=== PATIENT | female | born 1955 | race Asian ===

== ENCOUNTER 2019-08-21 05:54 | Day surgery (SDC) | payer OTHER ==
[~2019-08-21] VITALS: Ht 154.9 cm; Wt 42.3 kg
[~2019-08-21 05:54] MED LIST: BECL8.7A5 IH; METF-444 PO; SODIUM CHLORIDE 0.9% 1,000 ML IV ONE
[2019-08-21] MEDS ORDERED: LIDOCAINE 2% 30 ML JELLY TP ONE (05:55)
[2019-08-21] MEDS ORDERED: ALBUTEROL SULFATE 2.5 MG/0.5 ML NEB SOLUTION NEB ONE (05:55)
[2019-08-21] MEDS ORDERED: LIDOCAINE 4% 50 ML SOLUTION TP ONE (05:55)
[2019-08-21] MEDS ORDERED: BENZOCAINE 20% 50 MCG/SPRAY 57 GM TP ONE (05:55)
[2019-08-21] MEDS ORDERED: SODIUM CHLORIDE 0.9% 1,000 ML IV ONE (07:00)
[2019-08-21 07:21] LABS: GLUCOMETER DEV NAME(LOC) SDS.; GLUCOSE,POINT OF CARE 76 MG/DL (70-110)
[2019-08-21] MEDS ORDERED: FentaNYL CITRATE-PF 100 MCG/2 ML VIAL ONE (08:02)
[2019-08-21] MEDS ORDERED: MIDAZOLAM HCL 2 MG/2 ML VIAL ONE (08:02)
[2019-08-21] MEDS ORDERED: GLIP5TAB11 PO (08:17)
[2019-08-21] MEDS ORDERED: FLUT16H IH (08:17)
[2019-08-21] MEDS ORDERED: MONT10TA24 PO (08:17)
[2019-08-21] MEDS ORDERED: BECL10.62 IH (08:17)
[2019-08-21] MEDS ORDERED: GABA-531 PO (08:17)
[2019-08-21] MEDS ORDERED: CHOL200059 PO (08:17)
[2019-08-21] MEDS ORDERED: SIMV10TA97 PO (08:17)
[2019-08-21] MEDS ORDERED: METF-445 PO (08:17)
[2019-08-21] MEDS ORDERED: MethylPREDNISolone SOD SUCC 125 MG/2 ML VIAL IVP ONE (09:00)
[2019-08-21] MEDS ORDERED: MethylPREDNISolone SOD SUCC 125 MG/2 ML VIAL ONE (09:07)
[2019-08-21] MEDS ORDERED: OXYGEN THERAPY IH SCH (20:00)
== END 2019-08-21 10:25 | disposition home or self-care (01) ==
LOC: SURGERY 05:54
PROVIDERS: ATTEND Internal Medicine Critical Care Medicine
DX: R05 Cough (principal); R91.1 Solitary pulmonary nodule; J34.89 Other specified disorders of nose and nasal sinuses; J98.8 Other specified respiratory disorders; J38.4 Edema of larynx; B37.0 Candidal stomatitis; E11.9 Type 2 diabetes mellitus without complications; Z79.899 Other long term (current) drug therapy
CPT/HCPCS: 31623; 31624; 71045; 82962; 87015; 87070; 87101; 87205; 87206; 87220; 88108; 88312; J2250; J2930; J3010; J7030